=== PATIENT | male | born 1950 | race American Indian/Alaskan Native ===

== ENCOUNTER 2021-02-23 10:33 | Emergency (ER) | payer MEDICARE ==
[2021-02-23 11:11] VITALS: BP 136/69
--- NOTE | 2021-02-23 11:16 | Event Note ---
ED Screening Note ED Screening Note: RN to call [facility] to see why pt is here Pt comes via EMS they were called for back pain pt denies any complaints - he states his back always hurts hx of dementia This initial assessment/diagnostic orders/clinical plan/treatment(s) is/are subject to change based on patients health status, clinical progression and re- assessment by fellow clinical providers in the ED. Further treatment and workup at subsequent clinical providers discretion. Patient/guardian urged not to elope from the ED as their condition may be serious if not clinically assessed and managed. Initial orders include: calling prison for information CAREGIVER CALLED PT WAS FINE THIS AM THEN WHEN GETTING IN THE TRUCK THE CAREGIVER SAID THE PTS BACK HURT SO BAD HE COULDNT GET IN THE TRUCK.
[2021-02-23] MEDS ORDERED: IBUPROFEN 400 MG TAB PO ONE (11:37)
[2021-02-23 12:48] LABS: Bilirubin,Urine NEG (Negative); Blood,Urine NEG (Negative); Color,Urine Yellow (Yellow); Hyaline Casts,Urine 1 /LPF; Mucus,Urine 3+ /HPF
--- NOTE | 2021-02-23 12:52 | Emergency Department Report ---
ED Back Pain/Injury HPI - General Chief Complaint: Back Pain/Injury Stated Complaint: BACK PAIN Time Seen by Provider: 02/23/21 11:16 Source: patient, family, RN/MD, EMS, old records reviewed Limitations: Physical Limitation - History of Present Illness Initial Comments: 70 YO COMES TO ER VIA EMS FROM SNF. CAREGIVER STATES PT WAS FINE THIS AM BUT THEN WHEN THEY WENT TO GET INTO THE VAN HE HAD BACK PAIN AND COULD NOT GET IN VAN. PT HAS A/C BACK PAIN. PT STATES PAIN IS NO DIFFERENT NOW THAN BEFORE. NO TENDERNESS ON EXAM. IN NAD NO CVA TENDERNESS NORMAL VS MD Complaint: back pain -: year(s) Similar Symptoms Previously: Yes Place: home Radiation: none Consistency: intermittent Improves With: immobilization Worsens With: movement Context: other Associated Symptoms: denies other symptoms - Related Data Allergies Allergy/AdvReac Type Severity Reaction Status Date / Time No Known Allergies Allergy Verified 02/23/21 11:14 ED Review of Systems ROS: Stated complaint: BACK PAIN Other details as noted in HPI Comment: All other systems reviewed and negative ED Past Medical Hx - Past Medical History Previous Medical History?: Yes Hx Hypertension: Yes Hx CVA: Yes (CVA,TBI,CONVULSIONS) Hx Asthma: Yes Hx Dementia: Yes (dementia) Additional medical history: INSOMINA - Family History Family history: no significant - Social History Smoking Status: Never Smoker Substance Use Type: None ED Physical Exam - General Limitations: Physical Limitation General appearance: alert, in no apparent distress - Head Head exam: Present: atraumatic, normocephalic - Eye Eye exam: Present: normal appearance - ENT ENT exam: Present: mucous membranes moist - Neck Neck exam: Present: normal inspection - Respiratory Respiratory exam: Present: normal lung sounds bilaterally. Absent: respiratory distress - Cardiovascular Cardiovascular Exam: Present: regular rate, normal rhythm. Absent: systolic murmur, diastolic murmur, rubs, gallop - GI/Abdominal GI/Abdominal exam: Present: soft, normal bowel sounds - Rectal Rectal exam: Present: deferred - Extremities Exam Extremities exam: Present: normal inspection - Back Exam Back exam: Present: normal inspection - Neurological Exam Neurological exam: Present: alert, oriented X3 - Psychiatric Psychiatric exam: Present: other (CALM NAD) - Skin Skin exam: Present: warm, dry, intact, normal color. Absent: rash ED Course Vital Signs 02/23/21 02/23/21 02/23/21 11:10 11:11 12:53 Temperature 98.7 F Pulse Rate 103 H Respiratory 20 20 18 Rate Blood Pressure 136/69 O2 Sat by Pulse 93 98 Oximetry - Reevaluation(s) Reevaluation #1: 02/23/21 1230 HR 90 ON EXAM ED Medical Decision Making - Medical Decision Making Lab Results 02/23/21 Range/Units 12:42 Urine Color Yellow (Yellow) Urine Turbidity Clear (Clear) Urine pH 5.0 (5.0-7.0) Ur Specific [place] 1.027 (1.003-1.030) Urine Protein 30 mg/dl (Negative) mg/dL Urine Glucose (UA) 50 (Negative) mg/dL Urine Ketones Tr (Negative) mg/dL Urine Blood Neg (Negative) Urine Nitrite Neg (Negative) Urine Bilirubin Neg (Negative) Urine Urobilinogen 4.0 (<2.0) mg/dL Ur Leukocyte Esterase Neg (Negative) Urine WBC (Auto) 1.0 (0.0-6.0) /HPF Urine RBC (Auto) 4.0 (0.0-6.0) /HPF Hyaline Casts 1 /LPF Urine Mucus 3+ /HPF Vital Signs 02/23/21 02/23/21 11:10 11:11 Temperature 98.7 F Pulse Rate 103 H Respiratory 20 20 Rate Blood Pressure 136/69 O2 Sat by Pulse 93 98 Oximetry UA NOTED NO POINT TENDERNESS ON EXAM IN NAD AND DENIES PAIN OR DISCOMFORT TAKING PO. CAREGIVER WILL BE CALLED FOR PT DISPO. CAN TREAT A/C PAIN WITH OTC MEDS/WARM COMPRESSES. PT TO FOLLOW UP WITH PCP. DC PLAN TO BE GIVEN TO THE CAREGIVER BY RN ON DC. - Differential Diagnosis RO UTI/ AC BACK PAIN Critical care attestation.: If time is entered above; I have spent that time in minutes in the direct care of this critically ill patient, excluding procedure time. ED Disposition Clinical Impression: Back pain Disposition: DC-01 TO HOME OR SELFCARE Is pt being admited?: No Does the pt Need Aspirin: No Condition: Stable Instructions: Chronic Back Pain Additional Instructions: MOTRIN OR TYLENOL OVER THE COUNTER FOR PAIN URINE - NO INFECTION TODAY KEEP WELL HYDRATED WITH WATER FOLLOW UP WITH PCP IN 48 HOURS FOR A RECHECK Referrals: RHINA GOMES MD [Primary Care Provider] - 3-5 Days CARBUCCIA,LAMAR, MD [Staff Physician] - 3-5 Days Time of Disposition: 12:54
== END 2021-02-23 13:00 | disposition home or self-care (01) ==
LOC: ED 10:33
DX: M54.9 Dorsalgia, unspecified (principal); I10 Essential (primary) hypertension; J45.909 Unspecified asthma, uncomplicated; F03.90 Unspecified dementia, unspecified severity, without behavioral disturbance, psychotic disturbance, mood disturbance, and anxiety; Z79.899 Other long term (current) drug therapy; Z86.73 Personal history of transient ischemic attack (TIA), and cerebral infarction without residual deficits
CPT/HCPCS: 81001